=== PATIENT | female | born 1995 | race Caucasian/White ===

== ENCOUNTER 2022-09-22 11:38 | Inpatient (IN) | payer OTHER ==
[2022-09-22] MEDS ORDERED: Sodium Chloride 0.9% 10 ML Syringe FLUSH PRN (19:02)
[2022-09-22] MEDS ORDERED: Misoprostol 100 MCG Tab VAG PRN (19:02)
[2022-09-22] MEDS ORDERED: Acetaminophen 325 MG Tab PO PRN (19:04)
[2022-09-22] MEDS ORDERED: Ondansetron 4 MG/2 ML SDV IVPUSH PRN (19:04)
[2022-09-22] MEDS ORDERED: Lidocaine 1% 50 ML MDV INJECT ONE (19:04)
[2022-09-22] MEDS ORDERED: Nalbuphine 10 MG/0.5 ML Syringe IVPUSH PRN (19:04)
[2022-09-22] MEDS ORDERED: Oxytocin/Lactated Ringers 10 UNIT/1,000 ML BAG IV SCH (19:15)
[2022-09-22] MEDS ORDERED: Lactated Ringers 1,000 ML IV SCH ×2 (19:15)
[2022-09-22 19:20] LABS: HEMATOCRIT 39.6 % (34.1-44.9); HEMOGLOBIN 13.7 gm/dl (11.2-15.7); MEAN CORPUSCULAR HEMOGLOBIN 33.5 pg (25.6-32.2); MEAN CORPUSCULAR HGB CONC 34.6 g/dl (32.2-35.5); MEAN CORPUSCULAR VOLUME 96.8 fl (79.4-94.8); PLATELET COUNT,PLT 191 K/mm3 (182-369); RED BLOOD CELL COUNT 4.09 M/mm3 (3.98-5.22); WHITE BLOOD CELL COUNT,WBC 9.26 K/mm3 (3.98-10.04)
[2022-09-22] MEDS ORDERED: Misoprostol 25 MCG (1/4 of 100 MCG) Tab VAG PRN (20:01)
[2022-09-22] MEDS ORDERED: Misoprostol 25 MCG (1/4 of 100 MCG) Tab VAG ONE (20:39)
[2022-09-22] MEDS ORDERED: Sodium Chloride 0.9% 10 ML Syringe FLUSH SCH (21:00)
[2022-09-22] MEDS: Misoprostol 25 MCG (1/4 of 100 MCG) Tab VAG PRN (21:30)
[2022-09-23] MEDS ORDERED: Bupivacaine 0.25% 10 ML SDV ONE
[2022-09-23] MEDS: Misoprostol 25 MCG (1/4 of 100 MCG) Tab VAG PRN (01:32)
[2022-09-23] MEDS ORDERED: Penicillin G Potassium 5 MILLUNITS in Sodium Chloride 0.9% 100 ML IV SCH (04:00)
[2022-09-23] MEDS ORDERED: Bupivacaine/fentaNYL/NS 100 ML Bag EPIDUR PRN (05:39)
[2022-09-23] MEDS ORDERED: diphenhydrAMINE 50 MG/ML SDV IVPUSH PRN ×3 (05:39→14:37)
[2022-09-23] MEDS ORDERED: ePHEDrine 50 MG/ML SDV IVPUSH PRN ×2 (05:39→14:37)
[2022-09-23] MEDS ORDERED: fentaNYL 100 MCG/2 ML SDV EPIDUR PRN (05:39)
[2022-09-23] MEDS: Penicillin G Potassium 2.5 MILLUNITS in Sodium Chloride 0.9% 100 ML IV SCH ×2 (08:02→14:11)
[2022-09-23] MEDS ORDERED: ceFAZolin 2 GM in Sodium Chloride 0.9% 50 ML IV ONE (09:11)
[2022-09-23] MEDS ORDERED: Citric Acid/Sodium Citrate Solution 30 ML Cup PO ONE (09:11)
[2022-09-23] MEDS ORDERED: Metoclopramide 10 MG/2 ML SDV IVPUSH ONE (09:11)
[2022-09-23] MEDS ORDERED: Azithromycin 500 MG in Sodium Chloride 0.9% 250 ML IV ONE (09:13)
[2022-09-23] MEDS ORDERED: Sodium Bicarbonate 8.4% 50 MEQ/50 ML SDV ONE (11:02)
[2022-09-23] MEDS ORDERED: Lidocaine 2% with EPINEPHrine 1:200,000 20 ML SDV ONE (11:02)
[2022-09-23] MEDS ORDERED: fentaNYL 100 MCG/2 ML SDV ONE (11:03)
[2022-09-23] MEDS ORDERED: Misoprostol 200 MCG Tab ONE (11:42)
[2022-09-23] MEDS ORDERED: Methylergonovine 0.2 MG/1 ML Amp ONE (11:46)
[2022-09-23] MEDS ORDERED: ceFAZolin 2 GM Vial ONE (11:56)
[2022-09-23] MEDS ORDERED: Propofol 200 MG/20 ML SDV ONE (11:57)
[2022-09-23] MEDS ORDERED: Ketorolac 30 MG/ML SDV ONE (12:07)
[2022-09-23] MEDS ORDERED: Lidocaine 1% 2 ML ONE (12:07)
[2022-09-23] MEDS ORDERED: fentaNYL 100 MCG/2 ML SDV IVPUSH PRN (12:29)
[2022-09-23] MEDS ORDERED: Ondansetron 4 MG/2 ML SDV IVPUSH PRN (12:29)
[2022-09-23] MEDS ORDERED: Meperidine 50 MG/ML Vial IVPUSH PRN (12:29)
[2022-09-23] MEDS ORDERED: Ondansetron 4 MG/2 ML SDV IV PRN (14:37)
[2022-09-23] MEDS ORDERED: Docusate Sodium 100 MG Cap PO PRN (14:37)
[2022-09-23] MEDS ORDERED: Naloxone 0.4 MG/ML SDV IVPUSH PRN (14:37)
[2022-09-23] MEDS ORDERED: Dextrose 5%-Lactated Ringers 1,000 ML IV SCH (14:37)
[2022-09-23] MEDS ORDERED: Acetaminophen/oxyCODONE 325-5 MG Tab PO PRN ×2 (14:37)
[2022-09-23] MEDS: Ketorolac 30 MG/ML SDV IVPUSH SCH (18:19)
[2022-09-24] MEDS: Ketorolac 30 MG/ML SDV IVPUSH SCH (00:35)
[2022-09-24 06:02] LABS: HEMATOCRIT 33.4 % (34.1-44.9); MEAN CORPUSCULAR HEMOGLOBIN 32.7 pg (25.6-32.2); MEAN CORPUSCULAR HGB CONC 33.2 g/dl (32.2-35.5); MEAN CORPUSCULAR VOLUME 98.5 fl (79.4-94.8); PLATELET COUNT,PLT 145 K/mm3 (182-369); RED BLOOD CELL COUNT 3.39 M/mm3 (3.98-5.22); WHITE BLOOD CELL COUNT,WBC 17.31 K/mm3 (3.98-10.04)
[2022-09-24 06:28] LABS: HEMOGLOBIN 11.1 gm/dl (11.2-15.7)
[2022-09-24] MEDS: Docusate Sodium 100 MG Cap PO SCH ×2 (09:31→21:56)
[2022-09-24] MEDS: Ibuprofen 600 MG Tab PO PRN ×2 (14:03→21:56)
== END 2022-09-25 10:00 | disposition home or self-care (01) | DRG 788 ==
LOC: JD.OB 11:38 → OBSVTOIN 09-23 11:38 → JD.OB 09-23 11:39
PROVIDERS: ADMIT Obstetrics & Gynecology; ATTEND Obstetrics & Gynecology
PROC: 10D00Z1 Extraction of Products of Conception, Low, Open Approach (ICD-10-PCS; principal; 2022-09-23)
PROC: 3E0P7VZ Introduction of Hormone into Female Reproductive, Via Natural or Artificial Opening (ICD-10-PCS; 2022-09-23)
PROC: 10907ZC Drainage of Amniotic Fluid, Therapeutic from Products of Conception, Via Natural or Artificial Opening (ICD-10-PCS; 2022-09-23)
PROC: 3E033VJ Introduction of Other Hormone into Peripheral Vein, Percutaneous Approach (ICD-10-PCS; 2022-09-23)
DX: O48.0 Post-term pregnancy (principal); O99.820 Streptococcus B carrier state complicating pregnancy; O62.1 Secondary uterine inertia; O76 Abnormality in fetal heart rate and rhythm complicating labor and delivery; Z3A.42 42 weeks gestation of pregnancy; Z37.0 Single live birth; Z79.899 Other long term (current) drug therapy
CPT/HCPCS: 01968; 36415; 51702; 59025; 85027; 86592; 86850; 86900; 86901; 99140; A9270-GY; J0456; J0690; J1885; J2175; J2210; J2300; J2405; J2540; J2590; J2704; J2765; J3010; J3490; J7050; J7120; J7121

== ENCOUNTER 2024-01-05 07:11 | Inpatient (IN) | payer OTHER ==
[~2024-01-05 07:11] MED LIST: Bupivacaine 0.25% 10 ML SDV ONE
[2024-01-05] MEDS ORDERED: Calcium Carbonate 500 MG Tab.Chew PO PRN (08:40)
[2024-01-05] MEDS ORDERED: Ondansetron 4 MG/2 ML SDV IVPUSH PRN (08:40)
[2024-01-05] MEDS ORDERED: Lidocaine 1% 50 ML MDV INJECT PRN (08:40)
[2024-01-05] MEDS ORDERED: Sodium Chloride 0.9% 10 ML Syringe FLUSH PRN (08:40)
[2024-01-05] MEDS ORDERED: Nalbuphine 10 MG/1 ML Vial IVPUSH PRN (08:40)
[2024-01-05] MEDS ORDERED: Oxytocin/0.9 % Sodium Chloride 30 UNIT/500 ML BAG IV SCH (08:45)
[2024-01-05] MEDS: Lactated Ringers 1,000 ML IV SCH (09:33)
[2024-01-05] MEDS: Penicillin G Potassium 5 MILLUNITS in Sodium Chloride 0.9% 100 ML IV SCH (09:36)
[2024-01-05 09:42] LABS: BASOPHILS PERCENT AUTO 0.3 % (0.0-1.0); EOSINOPHILS PERCENT AUTO 0.4 % (0.0-6.0); HEMATOCRIT 38.4 % (37.0-47.0); HEMOGLOBIN 13.4 gm/dl (12.0-16.0); IMMATURE GRAN ABSOLUTE AUTO 0.04 K/mm3 (0.00-0.05); IMMATURE GRAN PERCENT AUTO 0.5 % (0.0-0.4); LYMPHOCYTES ABSOLUTE AUTO 1.8 K/mm3 (1.0-4.8); LYMPHOCYTES PERCENT AUTO 24.1 % (24.0-44.0); MEAN CORPUSCULAR HEMOGLOBIN 33.3 pg (28.0-32.0); MEAN CORPUSCULAR HGB CONC 34.9 g/dl (32.0-36.0); MEAN CORPUSCULAR VOLUME 95.5 fl (83.0-99.0); MEAN PLATELET VOLUME 9.3 fl (9.4-12.3); MONOCYTES ABSOLUTE AUTO 0.5 K/mm3 (0.0-0.8); MONOCYTES PERCENT AUTO 6.7 % (0.0-8.0); PLATELET COUNT,PLT 194 K/mm3 (150-400); RED BLOOD CELL COUNT 4.02 M/mm3 (4.10-5.30); WHITE BLOOD CELL COUNT,WBC 7.29 K/mm3 (3.9-11.3)
[2024-01-05] MEDS: Oxytocin/0.9 % Sodium Chloride 30 UNIT/500 ML BAG IV SCH (09:58)
[2024-01-05] MEDS ORDERED: diphenhydrAMINE 50 MG/ML SDV IVPUSH PRN (10:59)
[2024-01-05] MEDS: Penicillin G Potassium 2.5 MILLUNITS in Sodium Chloride 0.9% 100 ML IV SCH (13:55)
[2024-01-05] MEDS: Bupivacaine/fentaNYL/NS 100 ML Bag EPIDUR PRN (17:13)
[2024-01-05] MEDS: fentaNYL 100 MCG/2 ML SDV EPIDUR PRN (17:13)
[2024-01-05] MEDS: ePHEDrine 50 MG/ML SDV IVPUSH PRN (18:02)
[2024-01-05] MEDS ORDERED: Acetaminophen 325 MG Tab PO PRN (21:37)
[2024-01-05] MEDS: Benzocaine/Menthol 20%-0.5% Spray 78 GM Cannister TOP PRN (21:41)
[2024-01-05] MEDS: Witch Hazel Medicated Pads 40/Jar TOP PRN (21:41)
[2024-01-05] MEDS: Ibuprofen 600 MG Tab PO SCH (21:44)
[2024-01-05] MEDS: Docusate Sodium 100 MG Cap PO PRN (21:44)
[2024-01-06 06:42] LABS: HEMATOCRIT 26.6 % (37.0-47.0); MEAN CORPUSCULAR HEMOGLOBIN 33.5 pg (28.0-32.0); MEAN CORPUSCULAR VOLUME 95.7 fl (83.0-99.0); MEAN PLATELET VOLUME 9.9 fl (9.4-12.3); PLATELET COUNT,PLT 175 K/mm3 (150-400); RED BLOOD CELL COUNT 2.78 M/mm3 (4.10-5.30); WHITE BLOOD CELL COUNT,WBC 12.55 K/mm3 (3.9-11.3)
[2024-01-06 06:43] LABS: HEMOGLOBIN 9.3 gm/dl (12.0-16.0)
[2024-01-06] MEDS: Ferrous Sulfate 324 MG Tab.EC PO SCH (12:04)
[2024-01-06] MEDS: Magnesium Hydroxide 400 MG/5 ML Susp 30 ML Cup PO PRN (16:58)
== END 2024-01-06 21:25 | disposition home or self-care (01) | DRG 807 ==
LOC: JD.OB 07:11 → OBSVTOIN 20:24 → JD.OB 20:25
PROVIDERS: ADMIT Family Medicine; ATTEND Family Medicine
PROC: 10E0XZZ Delivery of Products of Conception, External Approach (ICD-10-PCS; principal; 2024-01-05)
PROC: 0U7C7ZZ Dilation of Cervix, Via Natural or Artificial Opening (ICD-10-PCS; 2024-01-05)
PROC: 3E0P7VZ Introduction of Hormone into Female Reproductive, Via Natural or Artificial Opening (ICD-10-PCS; 2024-01-05)
PROC: 0HQ9XZZ Repair Perineum Skin, External Approach (ICD-10-PCS; 2024-01-05)
PROC: 3E0R3BZ Introduction of Anesthetic Agent into Spinal Canal, Percutaneous Approach (ICD-10-PCS; 2024-01-05)
PROC: 00HU33Z Insertion of Infusion Device into Spinal Canal, Percutaneous Approach (ICD-10-PCS; 2024-01-05)
DX: O48.0 Post-term pregnancy (principal); Z37.0 Single live birth; O99.824 Streptococcus B carrier state complicating childbirth; O70.0 First degree perineal laceration during delivery; O34.219 Maternal care for unspecified type scar from previous cesarean delivery; Z3A.40 40 weeks gestation of pregnancy; Z79.899 Other long term (current) drug therapy
CPT/HCPCS: 36415; 51701; 59025; 59409; 85025; 85027; 86592; 86850; 86900; 86901; A9270-GY; C1726; C1758; J0665; J2540; J3010; J3490; J7120; J7999